=== PATIENT | male | born 1935 | race Caucasian/White ===

== ENCOUNTER 2020-12-03 12:24 | Inpatient (IN) | payer OTHER ==
[~2020-12-03] VITALS: Ht 177.8 cm; Wt 110.5 kg
[2020-12-03 12:24] VITALS: BP 167/78
[2020-12-03 12:56] LABS: BASO % 0.6 % (0.0-1.0); EOS # 0.3 10*3/uL (0.0-0.4); EOS % 4.4 % (1.0-4.0); HEMATOCRIT 39.7 % (42.0-52.0); LYMPH # 1.2 10*3/uL (1.3-4.4); LYMPH % 16.4 % (27.0-41.0); MEAN CELL VOLUME 94.5 fl (80.0-94.0); MEAN CORPUSCULAR HGB 30.5 pg (27.0-31.0); MEAN CORPUSCULAR HGB CONC 32.2 g/dl (33.0-37.0); MEAN PLATELET VOLUME 9.5 fl (9.6-12.3); MONO # 0.7 10*3/uL (0.1-1.0); MONO % 9.6 % (3.0-9.0); NEUT % 68.4 % (47.0-73.0); PLATELET COUNT AUTOMATED 190 10*3/uL (130-400); RED CELL DISTRI WIDTH 14.1 % (0-14.5); WHITE BLOOD COUNT 7.3 10*3/uL (4.8-10.8)
[2020-12-03 13:09] LABS: CREATININE 1.45 mg/dL (0.70-1.30); POTASSIUM 4.3 mmol/L (3.5-5.1)
[2020-12-03 16:00] VITALS: BP 160/67
[2020-12-03 18:40] VITALS: BP 154/78
[2020-12-03] MEDS ORDERED: POTASSIUM CHLO20 ME4 PO (18:45)
[2020-12-03] MEDS ORDERED: LASIX20 MG PO (18:46)
[2020-12-03] MEDS ORDERED: Synthroid,Lev150 MCG PO (18:46)
[2020-12-03 20:00] VITALS: BP 160/67
[2020-12-04] VITALS: BP 155/64
[2020-12-04 06:13] LABS: BASO % 0.4 % (0.0-1.0); EOS # 0.2 10*3/uL (0.0-0.4); EOS % 2.8 % (1.0-4.0); HEMATOCRIT 36.1 % (42.0-52.0); LYMPH # 0.9 10*3/uL (1.3-4.4); LYMPH % 13.7 % (27.0-41.0); MEAN CELL VOLUME 96.3 fl (80.0-94.0); MEAN CORPUSCULAR HGB 30.4 pg (27.0-31.0); MEAN CORPUSCULAR HGB CONC 31.6 g/dl (33.0-37.0); MEAN PLATELET VOLUME 9.8 fl (9.6-12.3); MONO # 0.7 10*3/uL (0.1-1.0); MONO % 10.7 % (3.0-9.0); NEUT # 4.9 10*3/uL (2.3-7.9); NEUT % 72.1 % (47.0-73.0); PLATELET COUNT AUTOMATED 169 10*3/uL (130-400); RED BLOOD COUNT 3.75 10*6/uL (4.50-5.90); WHITE BLOOD COUNT 6.8 10*3/uL (4.8-10.8)
[2020-12-04 06:22] LABS: ALBUMIN 3.3 gm/dl (3.1-4.5); ALKALINE PHOSPHATASE 62 U/L (45-117); BUN 20 mg/dl (7-24); CHLORIDE 107 mmol/L (98-107); CHOLESTEROL 167 mg/dL (<200); CREATININE 1.21 mg/dL (0.70-1.30); LDL CHOLESTEROL 107 mg/dL (9-159); POTASSIUM 3.9 mmol/L (3.5-5.1); SGOT/AST 11 IU/L (3-35); SGPT/ALT 15 U/L (12-78); SODIUM 139 mmol/L (136-145); TOTAL PROTEIN 6.6 gm/dL (6.4-8.2); TRIGLYCERIDES 73 mg/dl (<150)
[2020-12-04 08:00] VITALS: BP 153/63
[2020-12-04 12:00] VITALS: BP 156/82
[2020-12-04 16:00] VITALS: BP 140/75
[2020-12-04 20:00] VITALS: BP 176/74
[2020-12-05] VITALS: BP 146/85; BP 155/98
[2020-12-05 07:23] LABS: BUN 16 mg/dl (7-24); CHLORIDE 104 mmol/L (98-107); CREATININE 1.18 mg/dL (0.70-1.30); POTASSIUM 3.9 mmol/L (3.5-5.1); SODIUM 137 mmol/L (136-145)
[2020-12-05 07:28] LABS: BASO % 0.4 % (0.0-1.0); EOS # 0.3 10*3/uL (0.0-0.4); EOS % 3.4 % (1.0-4.0); HEMATOCRIT 35.7 % (42.0-52.0); LYMPH # 0.7 10*3/uL (1.3-4.4); LYMPH % 8.2 % (27.0-41.0); MEAN CELL VOLUME 94.7 fl (80.0-94.0); MEAN CORPUSCULAR HGB 30.2 pg (27.0-31.0); MEAN CORPUSCULAR HGB CONC 31.9 g/dl (33.0-37.0); MONO # 0.9 10*3/uL (0.1-1.0); MONO % 10.7 % (3.0-9.0); NEUT # 6.3 10*3/uL (2.3-7.9); NEUT % 76.9 % (47.0-73.0); PLATELET COUNT AUTOMATED 171 10*3/uL (130-400); RED BLOOD COUNT 3.77 10*6/uL (4.50-5.90); WHITE BLOOD COUNT 8.2 10*3/uL (4.8-10.8)
[2020-12-05 08:15] VITALS: BP 155/82
[2020-12-05 11:05] VITALS: BP 155/59
[2020-12-05 16:00] VITALS: BP 128/57
[2020-12-05 20:00] VITALS: BP 154/68
[2020-12-06] VITALS: BP 160/87
[2020-12-06 06:25] LABS: BASO % 0.4 % (0.0-1.0); EOS # 0.4 10*3/uL (0.0-0.4); EOS % 5.3 % (1.0-4.0); HEMATOCRIT 33.8 % (42.0-52.0); LYMPH % 12.6 % (27.0-41.0); MEAN CELL VOLUME 95.8 fl (80.0-94.0); MEAN CORPUSCULAR HGB 30.6 pg (27.0-31.0); MONO % 12.7 % (3.0-9.0); NEUT # 5.4 10*3/uL (2.3-7.9); NEUT % 68.5 % (47.0-73.0); PLATELET COUNT AUTOMATED 147 10*3/uL (130-400); RED BLOOD COUNT 3.53 10*6/uL (4.50-5.90); RED CELL DISTRI WIDTH 14.1 % (0-14.5); WHITE BLOOD COUNT 7.9 10*3/uL (4.8-10.8)
[2020-12-06 06:27] LABS: ALBUMIN 2.9 gm/dl (3.1-4.5); ALKALINE PHOSPHATASE 55 U/L (45-117); BUN 16 mg/dl (7-24); CHLORIDE 104 mmol/L (98-107); CREATININE 1.25 mg/dL (0.70-1.30); POTASSIUM 3.6 mmol/L (3.5-5.1); SGOT/AST 21 IU/L (3-35); SGPT/ALT 19 U/L (12-78); SODIUM 137 mmol/L (136-145); TOTAL PROTEIN 6.4 gm/dL (6.4-8.2)
[2020-12-06 08:00] VITALS: BP 148/45
[2020-12-06 12:00] VITALS: BP 154/63
[2020-12-06 16:00] VITALS: BP 136/59; BP 137/56
[2020-12-06 20:00] VITALS: BP 155/55
[2020-12-07] VITALS: BP 167/60
[2020-12-07 05:54] LABS: ALBUMIN 2.9 gm/dl (3.1-4.5); BUN 18 mg/dl (7-24); CHLORIDE 102 mmol/L (98-107); CREATININE 1.24 mg/dL (0.70-1.30); POTASSIUM 3.6 mmol/L (3.5-5.1); SGOT/AST 24 IU/L (3-35); SGPT/ALT 31 U/L (12-78); SODIUM 136 mmol/L (136-145); TOTAL PROTEIN 6.3 gm/dL (6.4-8.2)
[2020-12-07 05:55] LABS: ALKALINE PHOSPHATASE 56 U/L (45-117)
[2020-12-07 06:20] LABS: BASO % 0.5 % (0.0-1.0); EOS # 0.4 10*3/uL (0.0-0.4); EOS % 4.5 % (1.0-4.0); HEMATOCRIT 33.1 % (42.0-52.0); MEAN CELL VOLUME 94.3 fl (80.0-94.0); MEAN CORPUSCULAR HGB 30.8 pg (27.0-31.0); MEAN CORPUSCULAR HGB CONC 32.6 g/dl (33.0-37.0); MEAN PLATELET VOLUME 10.1 fl (9.6-12.3); MONO # 1.1 10*3/uL (0.1-1.0); MONO % 13.4 % (3.0-9.0); NEUT # 5.7 10*3/uL (2.3-7.9); PLATELET COUNT AUTOMATED 169 10*3/uL (130-400); RED BLOOD COUNT 3.51 10*6/uL (4.50-5.90); RED CELL DISTRI WIDTH 13.9 % (0-14.5); WHITE BLOOD COUNT 8.3 10*3/uL (4.8-10.8)
[2020-12-07 08:00] VITALS: BP 151/41
[2020-12-07 12:00] VITALS: BP 114/72
[2020-12-07 16:00] VITALS: BP 156/91
[2020-12-07 20:00] VITALS: BP 155/66
[2020-12-08] VITALS: BP 148/52
[2020-12-08 05:58] LABS: BASO # 0.1 10*3/uL (0.0-0.1); BASO % 0.8 % (0.0-1.0); EOS # 0.4 10*3/uL (0.0-0.4); EOS % 5.3 % (1.0-4.0); HEMATOCRIT 32.6 % (42.0-52.0); LYMPH # 1.1 10*3/uL (1.3-4.4); LYMPH % 13.9 % (27.0-41.0); MEAN CELL VOLUME 94.2 fl (80.0-94.0); MEAN CORPUSCULAR HGB 30.6 pg (27.0-31.0); MEAN CORPUSCULAR HGB CONC 32.5 g/dl (33.0-37.0); NEUT # 5.1 10*3/uL (2.3-7.9); NEUT % 66.5 % (47.0-73.0); PLATELET COUNT AUTOMATED 174 10*3/uL (130-400); RED BLOOD COUNT 3.46 10*6/uL (4.50-5.90); RED CELL DISTRI WIDTH 13.9 % (0-14.5); WHITE BLOOD COUNT 7.7 10*3/uL (4.8-10.8)
[2020-12-08 06:22] LABS: BUN 18 mg/dl (7-24); CHLORIDE 102 mmol/L (98-107); CREATININE 1.27 mg/dL (0.70-1.30); POTASSIUM 3.5 mmol/L (3.5-5.1); SODIUM 134 mmol/L (136-145)
[2020-12-08 08:00] VITALS: BP 148/66
[2020-12-08 12:00] VITALS: BP 142/68
[2020-12-08 16:00] VITALS: BP 158/86
[2020-12-08 20:00] VITALS: BP 154/64
[2020-12-09] VITALS: BP 148/50
[2020-12-09 08:00] VITALS: BP 172/72
[2020-12-09] MEDS ORDERED: HYDROCODONE-AC1 EAC1 PO (10:42)
[2020-12-09] MEDS ORDERED: PHARMASSURE V500 MCG PO (10:42)
== END 2020-12-09 12:40 | DRG 562 ==
LOC: ED 12:24 → EDHOLD 15:28 → 5E 15:28 → EDHOLD 16:33 → 5E 18:00
PROVIDERS: Emergency Medicine; Internal Medicine; Student in an Organized Health Care Education/Training Program; ADMIT Internal Medicine; ATTEND Internal Medicine
PROC: 0HQ1XZZ Repair Face Skin, External Approach (ICD-10-PCS; principal; 2020-12-03)
PROC: 0HQFXZZ Repair Right Hand Skin, External Approach (ICD-10-PCS; 2020-12-03)
DX: S42.201A Unspecified fracture of upper end of right humerus, initial encounter for closed fracture (principal); N17.0 Acute kidney failure with tubular necrosis; M19.011 Primary osteoarthritis, right shoulder; E53.8 Deficiency of other specified B group vitamins; T07.XXXA Unspecified multiple injuries, initial encounter; W19.XXXA Unspecified fall, initial encounter; D64.3 Other sideroblastic anemias; R73.9 Hyperglycemia, unspecified; E03.9 Hypothyroidism, unspecified; Z96.653 Presence of artificial knee joint, bilateral; Z20.822 Contact with and (suspected) exposure to COVID-19; S01.111A Laceration without foreign body of right eyelid and periocular area, initial encounter; S61.411A Laceration without foreign body of right hand, initial encounter; Z88.5 Allergy status to narcotic agent; Y93.89 Activity, other specified; Z90.49 Acquired absence of other specified parts of digestive tract; Z88.0 Allergy status to penicillin; Y92.89 Other specified places as the place of occurrence of the external cause; Y99.8 Other external cause status; Z79.899 Other long term (current) drug therapy

== ENCOUNTER → 2020-12-18 | Outpatient (CLI) | payer OTHER ==
[~2020-12-18] MED LIST: HYDROCODONE-AC1 EAC1 PO; LASIX20 MG PO; PHARMASSURE V500 MCG PO; POTASSIUM CHLO20 ME4 PO; Synthroid,Lev150 MCG PO
== END | disposition home or self-care (01) ==
LOC: RAD 13:13
PROVIDERS: ATTEND Orthopaedic Surgery
DX: M19.011 Primary osteoarthritis, right shoulder (principal); S42.201D Unspecified fracture of upper end of right humerus, subsequent encounter for fracture with routine healing; X58.XXXD Exposure to other specified factors, subsequent encounter

== ENCOUNTER → 2021-01-08 | Outpatient (CLI) | payer OTHER | END | disposition home or self-care (01) | LOC: RAD 10:23 | PROVIDERS: ATTEND Orthopaedic Surgery | DX: S42.102A Fracture of unspecified part of scapula, left shoulder, initial encounter for closed fracture (principal); X58.XXXA Exposure to other specified factors, initial encounter; Y93.89 Activity, other specified; Y92.89 Other specified places as the place of occurrence of the external cause; Y99.8 Other external cause status ==